=== PATIENT | male | born 1995 | race Caucasian/White ===

== ENCOUNTER 2018-05-15 09:26 | Emergency (ER) | payer OTHER, MEDICAID, SELFPAY ==
[2018-05-15 09:36] VITALS: BP 133/72; PULSE 67; RESP 20; TEMP 37; O2SAT 96; BMI 25.0
--- NOTE | 2018-05-15 09:37 | ED_ITS ---
HPI - Extremity Injury (Upper) General Chief Complaint: Extremity Injury, Upper Stated Complaint: RIGHT HAND PAIN FOR 5 HOURS Time Seen by Provider: 05/15/18 09:37 Source: patient Mode of arrival: ambulatory Limitations: no limitations History of Present Illness HPI narrative: 23-year-old [id number] male here for evaluation of right hand injury. Patient states that he punched a wall last evening and since then has had pain and swelling. No elbow pain. No wrist pain. Related Data Home Medications Medication Instructions Recorded Confirmed No Known Home Medications 05/15/18 05/15/18 Allergies Allergy/AdvReac Type Severity Reaction Status Date / Time No Known Drug Allergies Allergy Verified 05/15/18 09:38 Review of Systems Constitutional Denies chills, Denies fever(s), Denies lethargy and Denies weakness Musculoskeletal Comments: Right hand pain Integumentary/Breasts Comments: Small abrasion back right hand Neurologic Denies weakness Comments: None numbness and tingling right hand Exam Initial Vital Signs Initial Vital Signs: Vital Signs Temperature 98.6 F 05/15/18 09:36 Pulse Rate 67 05/15/18 09:36 Respiratory Rate 20 05/15/18 09:36 Blood Pressure 133/72 H 05/15/18 09:36 Pulse Oximetry 96 05/15/18 09:36 Cardio Pulses: radial pulses present on the right Skin Other: Small 1/2 cm linear abrasion on the back of the right hand over the MCP joint of the little finger. Neuro Other: Sensation intact to light touch right upper extremity Extrem General: capillary refill normal Other: Right elbow unremarkable, right shoulder unremarkable, right wrist unremarkable, right hand unremarkable except for swelling over the ulnar aspect on the dorsum of the right hand and tenderness to palpation along the metacarpal of the little finger. Patient able to bend at the MCP DIP and PIP joint of the right little finger. Procedures Orthopedic Splinting/Casting Injury #1: Side: right Upper Extremity Injury Location: hand Upper Extremity Immobilizer: ulnar gutter Additional Comments: Hematoma block performed with 6 cc of 1% lidocaine without epinephrine Course Orders Ordered: ED Orders 05/15/18 09:38 XR hand RT min 3V Stat 05/15/18 10:12 XR hand RT min 3V Stat Vital Signs - 8 hr 05/15/18 09:36 05/15/18 10:50 Temperature 98.6 F 97.6 F Pulse Rate 67 66 Respiratory Rate 20 18 Blood Pressure 133/72 H Blood Pressure [Left Arm] 139/71 H Pulse Oximetry 96 99 MDM - Extremity Injury (Upper) Imaging Data Hand x-ray: Radiologist's impression: PROCEDURE: XR HAND RT MIN 3V INDICATIONS: punched wall TECHNIQUE: 3 views of the hand(s) acquired. COMPARISON: None. FINDINGS: Bones: Fifth metacarpal fracture with palmar and radial angulation of the distal fragment. Soft tissues: No suspicious soft tissue calcifications. IMPRESSION: Fifth metacarpal fracture Dictated by: Jean Deluna M.D. on 05/15/2018 at 8:49 Post reduction x-ray: Attestation: I personally reviewed and interpreted this imaging study as follows: My impression: Improvement of the angulation 5th metacarpal fracture MDM Narrative Medical decision making narrative: Patient with boxer's fracture right hand. Placed in ulnar gutter splint. Secondary to the angulation and twisting of the distal aspect a consult was placed to Orthopedics who stated that if the fracture was not open that I could just be splinted and normal follow-up. Patient was given this instruction. He is given splint care instructions. He expressed understanding and agreement with plan Discharge Plan Departure Patient Disposition: Home, Self-Care Clinical Impression: Fx metacarpal neck-closed Instructions: How To Perform RICE (Rest, Ice, Compress, Elevate), How to Take Care of Your Splint, Boxer's Fracture Activity Restrictions/Additional Instructions: Keep the splint on and keep it clean and dry. Call the [facility] group at [phone] either today or on Friday for a follow-up next week. Return to the emergency department for any new or worsening symptoms Prescriptions: No Action No Known Home Medications RF: 0
--- NOTE | 2018-05-15 10:12 | DI.RAD.S_ITS ---
PROCEDURE: XR HAND RT MIN 3V INDICATIONS: Post reduction in splint TECHNIQUE: 3 views of the hand(s) acquired. COMPARISON: [facility], CR, XR HAND RT MIN 3V, 05/15/2018, 9:18. FINDINGS: Bones: There has been interval reduction of the previous distal fifth metacarpal fracture. While there is improved alignment, but remains posterior lateral angulation. Soft tissues: No suspicious soft tissue calcifications. IMPRESSION: Improved anatomic alignment with persistent angulation at the distal fifth metacarpal fracture. Dictated by: Anaid Jaime M.D. on 05/15/2018 at 10:48 Approved by: Anaid Jaime M.D. on 05/15/2018 at 10:51
[2018-05-15 10:50] VITALS: BP 139/71; PULSE 66; RESP 18; TEMP 36.4; O2SAT 99
== END 2018-05-15 11:55 | disposition home or self-care (01) ==
PROVIDERS: Emergency Provider Emergency Medicine
DX: S62.306A Unspecified fracture of fifth metacarpal bone, right hand, initial encounter for closed fracture (principal); W22.8XXA Striking against or struck by other objects, initial encounter
CPT/HCPCS: 29105; 73130; 99282; 99283

== ENCOUNTER 2018-06-04 08:09 | Day surgery (SDC) | payer OTHER, MEDICAID, SELFPAY ==
[2018-06-02 07:45] VITALS: BMI 25.2
[2018-06-04] VITALS (10 sets, daily range): BP systolic 104–140; BP diastolic 46–82; PULSE 66–96; RESP 12–20; TEMP 36.3–37.7; O2SAT 95–100; BMI 25.4
--- NOTE | 2018-06-04 08:59 | PM.PREOP ---
Pre-operative Note Interval Note Pre-op Check: History & Physical Reviewed by Physician and Exam Performed H&P completed within 30 days and has changed as indicated here:: no changes
[2018-06-04] MEDS: LACTATED RINGERS 1,000 ML 42 ML IV (09:11)
--- NOTE | 2018-06-04 09:11 | P.OP_ITS ---
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 He punched a wall on 05/14/2018 sustaining a displaced right 5th metacarpal neck fracture. He was seen in the ER where this was reduced and splinted. He was also seen a week later in the Orthopedic Clinic noted to have increased displacement and was closed reduced obtaining good alignment on office imaging. The patient was once again splinted in a safe position. On follow-up in the office patient's fracture angulation had increased to approximately 60-70?, the patient had prominence in his palm and mild pseudo clawing. Of note the patient had been very active, golfing and playing soccer in the splint. He is a very active individual and does a lot of gripping activities, and requests surgical fixation. The risks and benefits of conservative versus operative fixation were discussed with the patient. Given his severe angulation, pseudo clawing and demanding activities he has been indicated for surgical reduction and stabilization. We discussed using K-wires for temporary fixation versus screws and a plate or intramedullary fixation and the risks and benefits of these options. We discussed attempted closed reduction and percutaneous fixation to obtain reduction and minimize soft tissue injury and stiffness, however we discussed open reduction may be necessary given the fracture displacement and age and this would be stabilized with wires or plate and screws. The patient was counseled regarding the rationale for this and the risk surgery. The risks include stiffness, infection , bleeding, damage to nerves and blood vessels or tendons, and wound dehiscence , malunion, nonunion, persistence of pain, DVT, PE, inability to return to the desired level of function, hardware breakage or prominence, generalized dissatisfaction with the surgical procedure, need for additional procedures, cardiopulmonary complications and . The patient expressed understanding of all the risks and elected to proceed. The patient understands that recovery is variable and may require up to 1 year. The patient also understands that it is critical to elevate the operative extremity for the 1st 2 weeks after surgery to control swelling and pain, and to avoid lifting activities with the right hand during initial recovery. Patient was counseled that he will be in a postop splint and/or cast. We discussed that he may require formal physical therapy and that stiffness often occurs after this injury and surgical fixation. Patient expressed full understanding of these issues and would like to proceed with surgery. Informed consent was obtained and signed. The patient was additionally counseled on avoidance of all nicotine products to promote bone and wound healing. Surgeon: Archana Fisher Click Yes if Unassisted: Yes Anesthesia Type: General and Local Operative Notes Findings: The right hand was inspected. There is absence of the knuckle prominence. Hand was then examined under C-arm fluoroscopy. There was a displaced metacarpal fracture. On attempted closed reduction this was found to be stiff and irreducible. A decision was made to open in order to obtain reduction. Dorsal approach to the fifth metacarpal demonstrated a small amount of dorsal soft callus. And is severely angulated metacarpal neck fracture apex dorsal. There was additionally some dorsal comminution with a dorsal butterfly fragment. Closure Type: primary Specimen(s): none sent Implants & Drains: 5 hole 2.7 Plate from mini fragment set 2.0 screws Applied: other (splint) Estimated Blood Loss (mL): 5 Blood products transfused: none Tourniquet time (min): 70 Procedure in detail: In the preoperative holding area, the appropriate limb and site of surgery were marked. Patient's questions were answered and consent was confirmed. The patient was brought back to the operating room, placed on operating table and given anesthetic. Following successful levels of anesthesia , the patient was appropriately padded and positioned and secured to the operative table in the supine position with a hand table on the right side. A well-padded brachial tourniquet was placed and SCD was used on the lower extremities. Surgical extremity was then prepped and draped in the standard sterile fashion. A formal timeout procedure was completed confirming the patient, site and side of surgery and administration of preoperative antibiotics. In this case that was 2 g of Ancef. All were in agreement. Possible implants for the case including K wires and may be fragments that were available. The mini C-arm was used to perform a stress radiographic examination of the fifth metacarpal fracture. This was found to be severely angulated approximately 60-70? apex dorsal and was stiff and not reducible. The decision was made to perform an open reduction internal fixation. An Esmarch was used to exsanguinate the upper extremity and the tourniquet was raised to 250 mmHg. An incision was made dorsal ulnar to the fifth metacarpal over the location of the fracture and ulnar to the extensor tendons. This was carried sharply down through the skin. The extensor tendons were mobilized and retracted radially to expose the dorsal surface of the fifth metacarpal. The fracture was identified this was noted to be angulated palmarly with mild comminution dorsally including a dorsal butterfly fragment that was nondisplaced as part of the distal fragment a loose and mobile. Additionally there is a small amount of soft callus dorsally. The fracture was reopened using a blade and a [place]. Care was taken to minimized stripping. This was somewhat difficult due to the fractures age, but eventual mobilization was obtained in the distal fragment was reduced to the shaft and held with 045 K wires. Reduction was confirmed on fluoroscopy and due to the dorsal comminution it was felt that a dorsal plate and screw construct would provide more stability than K wires and allow potential early immobilization. A 5 hole plate from the mini fragment set was selected. This was fit over the fracture and bicortical fixation was achieved with 2 screws proximally and distally screw lengths were checked. Initially the distal screw was demonstrated to be too long for this was exchanged and again fixation was confirmed adequate on multiplane fluoroscopy. The MCP joint was checked unable to obtain a full range of motion without impingement. And tenodesis examination was performed confirming appropriate rotational alignment and cascade. The tourniquet was released hemostasis was achieved and the wound was copiously irrigated with sterile saline. The incision was closed in layers with 3-0 Vicryl 4-0 Monocryl and 4-0 nylon suture. An ulnar nerve block was completed with a 50-50 mix of 1% lidocaine plain and 0.5% bupivacaine. Xeroform and gauze dressing were placed. The upper extremity was placed into an ulnar gutter splint in the safe position. The patient was awoken from anesthesia and taken to the recovery room in good condition. All counts were correct. There were no immediate complications from this procedure. Complications: none Condition: stable Disposition: same day surgery Plan for aftercare: Patient will be discharged home from the PACU he will be nonweightbearing on his right upper extremity and will keep the splint clean dry and in place. He will follow-up in 7-14 days for splint removal and suture removal. And will start limited early range of motion as appropriate.
[2018-06-04] MEDS: CEFAZOLIN 2 GM/100 ML FROZ.PIGGY IV (11:04)
--- NOTE | 2018-06-04 11:23 | SUR.OPER ---
Supine on padded OR bed, head on pillow, left arm secured on padded arm boards at <90 degrees abduction, right arm draped free on sterile arm board, legs uncrossed, safety belt at thigh, tape over blanket over lower legs.
[2018-06-04] MEDS: BUPIVACAINE 0.5% (PF) 30 ML VIAL INJ (11:46)
[2018-06-04] MEDS: LIDOCAINE 1% 30 ML INJ INJ (11:46)
[2018-06-04] MEDS: METOCLOPRAMIDE 10 MG/2 ML INJ IV ×2 (13:43→14:55)
[2018-06-04] MEDS: fentaNYL 100 MCG/2 ML INJ 50 MCG IV ×2 (13:54→14:01)
--- NOTE | 2018-06-04 14:05 | SUR.PHASEI ---
Assumed care. Pt reported pain improving to 5/10. Drsg CDI, Fingers warm, cap refill wnl, + sensation to fingers.
[2018-06-04] MEDS: HYDROCODONE/ACET 5/325 TABLET 1 TAB PO (14:43)
== END 2018-06-04 15:30 | disposition home or self-care (01) ==
PROVIDERS: Visit Provider Orthopaedic Surgery Foot and Ankle Surgery
PROC: (CPT 26615; principal; 2018-06-04 11:15)
DX: S62.398A Other fracture of other metacarpal bone, initial encounter for closed fracture (principal); W22.09XA Striking against other stationary object, initial encounter
CPT/HCPCS: 26615; J0690; J2405; J2704; J2765; J3010

== ENCOUNTER 2018-07-29 12:25 | Emergency (ER) | payer OTHER, MEDICAID, SELFPAY ==
[2018-07-29 12:29] VITALS: BP 135/78; PULSE 67; RESP 14; TEMP 36.6; O2SAT 98
--- NOTE | 2018-07-29 12:44 | ED.EXTPRO ---
HPI - Extremity Problem <Magalie Armenta PA-C - Last Filed: 07/29/18 14:06> General Chief complaint: Extremity Problem,Nontraumatic Stated complaint: SURGERY 06/04,POST OP INFECTION? Time Seen by Provider: 07/29/18 12:36 Source: patient Mode of arrival: ambulatory Limitations: no limitations History of Present Illness HPI Narrative: This healthy 23-year-old male with a history of right 5th metacarpal fracture fixation comes in due to concern for surgical wound infection. He states that he had some delayed healing and problems just with the distal end of the wound over the metacarpal joint, but it did seem to eventually get better. He states that at his recent physical therapy visit, PT notice that it felt warmer, and he thinks he has noticed some increased redness and warmth for the last few days or so. He states that he has also had some intermittent green pus drain, last time was yesterday. He denies any rapid spread. He has not had any pus draining today. He denies any difficulty or pain with movement. No weakness or paresthesia. He has not had any fever and states he is feeling fine. He states that he has been cleaning this with peroxide, alcohol and using antibiotic ointment. Related Data Previous Rx's Medication Instructions Recorded cephalexin [Keflex] 500 mg PO Q6H 7 Days #28 cap 07/29/18 Allergies Allergy/AdvReac Type Severity Reaction Status Date / Time cat dander Allergy Verified 07/29/18 12:31 Review of Systems <Magalie Armenta PA-C - Last Filed: 07/29/18 14:06> Review of Systems All systems reviewed & are unremarkable except as noted in HPI and below PFSH <Magalie Armenta PA-C - Last Filed: 07/29/18 14:06> Comment: Occasional ETOH, no street drugs Exam <Magalie Armenta PA-C - Last Filed: 07/29/18 14:06> Narrative Exam Narrative: GENERAL APPEARANCE: Patient sitting comfortably, in no distress. LUNGS: Clear to auscultation bilaterally. HEART: Rate and rhythm regular without murmur, normal S1 and S2, no S3 or S4. DERMATOLOGIC: There is a well-healed right 5th metacarpal dorsum surgical scar. There is some induration and a visible pore over the MC joint. No fluctuance. No tenderness. Mild erythema surrounding that extends to the wrist on the dorsum, non circumferential. Minimally warm to touch, unable to exude any drainage MUSCULOSKELETAL: Right 5th finger full range of motion, strength intact against resistance NEUROVASCULAR: Right hand is warm and pink, brisk cap refill, SENSATION IS GROSSLY INTACT Initial Vital Signs Initial Vital Signs: Vital Signs Temperature 97.8 F 07/29/18 12:29 Pulse Rate 67 07/29/18 12:29 Respiratory Rate 14 07/29/18 12:29 Blood Pressure 135/78 07/29/18 12:29 Pulse Oximetry 98 07/29/18 12:29 <Anabel Urban DO - Last Filed: 07/30/18 08:25> Initial Vital Signs Initial Vital Signs: Vital Signs Temperature 97.8 F 07/29/18 12:29 Pulse Rate 67 07/29/18 12:29 Respiratory Rate 14 07/29/18 12:29 Blood Pressure 135/78 07/29/18 12:29 Pulse Oximetry 98 07/29/18 12:29 Course <Magalie Armenta PA-C - Last Filed: 07/29/18 14:06> Vital Signs - 8 hr 07/29/18 12:29 07/29/18 13:17 Temperature 97.8 F Pulse Rate 67 65 Respiratory Rate 14 12 Blood Pressure 135/78 125/66 Pulse Oximetry 98 99 <Anabel Urban DO - Last Filed: 07/30/18 08:25> Vital Signs - 8 hr 07/29/18 12:29 07/29/18 13:17 Temperature 97.8 F Pulse Rate 67 65 Respiratory Rate 14 12 Blood Pressure 135/78 125/66 Pulse Oximetry 98 99 Discharge Plan Departure Patient Disposition: Home Clinical Impression: Cellulitis of finger of right hand Discharge Date/Time: 07/29/18 13:17 Interventions: ED Discharge Assessment Last Done: 07/29/18 13:17 Instructions: DI for Cellulitis -- Adult Activity Restrictions/Additional Instructions: Please return as we talked about if any acutely worsening symptoms such as rapid increase in redness, drainage, pain or new fever. Otherwise, please follow-up with your surgeon or your PCP in a few days to assess her progress. You may want to use hot soaks to help with cleaning and drainage, then you can continue your antibiotic ointment. Start antibiotic as soon as you pick it up. Prescriptions: New cephalexin [Keflex] 500 mg capsule 500 mg PO Q6H 7 Days Qty: 28 RF: 0 Referrals: Rafal Durbin [Other] Archana Fisher MD [Physician] - <Anabel Urban DO - Last Filed: 07/30/18 08:25> Cosign ED Attending Galindoature Attestation: I was immediately available in the department for consultation. Documentation has been reviewed. I agree with assessment and plan.
[2018-07-29 13:17] VITALS: BP 125/66; PULSE 65; RESP 12; O2SAT 99
== END 2018-07-29 13:17 | disposition home or self-care (01) ==
LOC: ED 13:10
PROVIDERS: Emergency Provider Internal Medicine
DX: L03.011 Cellulitis of right finger (principal)
CPT/HCPCS: 99282

== ENCOUNTER 2020-12-03 09:56 | Emergency (ER) | payer OTHER, SELFPAY ==
--- NOTE | 2020-12-03 10:23 | DI.RAD.S_ITS ---
PROCEDURE: XR FINGER LT MIN 2V INDICATIONS: crush/open wound TECHNIQUE: AP hand, 2 views of the 1st finger(s) acquired. COMPARISON: None. FINDINGS: Bones: No fractures or dislocations. No suspicious bony lesions. Soft tissues: No suspicious soft tissue calcifications. No radiopaque foreign body. IMPRESSION: No acute osseous abnormality. Dictated by: Sanket Kwon M.D. on 12/03/2020 at 9:51 Approved by: Sanket Kwon M.D. on 12/03/2020 at 9:52
[2020-12-03 10:24] VITALS: BP 125/77; PULSE 82; RESP 16; TEMP 37; O2SAT 100; BMI 25.0
[2020-12-03] MEDS: KETOROLAC 60 MG/2 ML VIAL 30 MG IM (12:15)
[2020-12-03] MEDS: TET,DIPH,PERTUSS(ACELL),VAC/PF 0.5 ML SYRINGE IM (12:16)
--- NOTE | 2020-12-03 12:17 | ED_ITS ---
HPI - Extremity Injury (Upper) <LUKE Hernandez - Last Filed: 12/03/20 16:02> General Chief Complaint: Extremity Injury, Upper Stated Complaint: SMASHED LEFT THUMB Time Seen by Provider: 12/03/20 11:27 Source: patient Mode of arrival: Ambulatory Limitations: no limitations History of Present Illness HPI narrative: The patient is a 25-year-old male nonsmoker who presents with a chief complaint of an injury to his left thumb. He states he got caught on a gym bench when moving the gym bench. He states that the laceration is through the nail. He has not washed it out. He does not know when his last tetanus was. He states that pain is a 3/10. He has not taken anything for pain. He denies any previous injuries to that area. He states he is right-hand dominant. Related Data Allergies Allergy/AdvReac Type Severity Reaction Status Date / Time No Known Drug Allergies Allergy Verified 12/03/20 12:51 Review of Systems <LUKE Hernandez - Last Filed: 12/03/20 16:02> Review of Systems Narrative: GENERAL: Denies chills, fatigue, malaise, fever, sweats. HEENT: Denies sinus pain, ear pain, sore throat, difficulty swallowing, dizziness. RESPIRATORY: Denies dyspnea, cough, wheezing, hemoptysis, sputum. CARDIOVASCULAR: Denies chest pain, palpitations, orthopnea, edema, GASTROINTESTINAL: Denies nausea, vomiting, abdominal pain, diarrhea, constipation, melena. : Denies dysuria, frequency, incontinence, hematuria, urinary retention. MUSCULOSKELETAL: See HPI SKIN: See HPI NEUROLOGIC: Denies weakness, headache, numbness, change in speech, confusion, seizures, incoordination. PSYCHIATRIC: No concerning psychosocial issues. 12 point review of systems is negative except for those stated above Patient History <LUKE Hernandez - Last Filed: 12/03/20 16:02> Social History Smoking Status: Never smoker Smoking Status: Never smoker alcohol intake frequency: 0-2 drinks per day Exam <LUKE Hernandez Last Filed: 12/03/20 16:02> Narrative Exam Narrative: GENERAL: This is a well-nourished, well-developed patient, in no acute distress HEAD: Atraumatic. Normocephalic. No temporal or scalp tenderness. EYES: Pupils equal round and reactive. Extraocular motions intact. No scleral icterus. No injection or drainage. ENT: Nose without bleeding, purulent drainage or septal hematoma. Wearing a mask Airway patent. NECK: Trachea midline. No JVD or lymphadenopathy. Supple, nontender, no meningeal signs. CARDIOVASCULAR: Regular rate and rhythm RESPIRATORY: No cough. No increased respiratory effort. No accessory muscle use. EXTREMITIES: Flex and extend left thumb against resistance. Capillary refill less than 2 seconds left thumb. Positive left radial pulse. BACK: Nontender without deformity or crepitance. No flank tenderness. NEURO: AOx3. SKIN: 1 cm linear laceration noted throughout left thumb nail. Well- approximated. Initial Vital Signs Initial Vital Signs: Vital Signs Temperature 98.6 F 12/03/20 10:24 Pulse Rate 82 12/03/20 10:24 Respiratory Rate 16 12/03/20 10:24 Blood Pressure 125/77 12/03/20 10:24 Pulse Oximetry 100 12/03/20 10:24 <Roseanna Lakhani DO - Last Filed: 12/03/20 19:41> Initial Vital Signs Initial Vital Signs: Vital Signs Temperature 98.6 F 12/03/20 10:24 Pulse Rate 82 12/03/20 10:24 Respiratory Rate 16 12/03/20 10:24 Blood Pressure 125/77 12/03/20 10:24 Pulse Oximetry 100 12/03/20 10:24 Scores <LUKE Hernandez - Last Filed: 12/03/20 16:02> GCS Dyan coma scale eye opening: Spontaneous Dyan coma scale verbal response: Orientated [place] coma scale motor response: Obey commands [facility] [place] coma scale total score: 15 Course <LUKE Hernandez - Last Filed: 12/03/20 16:02> Orders Ordered: Discontinued Medications Bacitracin (Bacitracin Oint 0.9 Gm Pckt) 1 applic TOP NOW ONE Stop: 12/03/20 12:56 Last Admin: 12/03/20 13:04 Dose: 1 applic Documented by: CHARLA Diphtheria/Tetanus/Acell Pertussis (Tet,Diph,Pertuss(Acell),Vac/Pf 0.5 Ml Sy ringe) 0.5 ml IM .ONCE ONE Stop: 12/03/20 11:48 Last Admin: 12/03/20 12:16 Dose: 0.5 ml Documented by: CHARLA Ketorolac Tromethamine (Ketorolac 60 Mg/2 Ml Vial) 30 mg IM NOW ONE Stop: 12/03/20 11:48 Last Admin: 12/03/20 12:15 Dose: 30 mg Documented by: CHARLA Vital Signs Vital signs: Vital Signs - 8 hr 12/03/20 13:09 Temperature 98.0 F Pulse Rate 66 Respiratory Rate 14 Blood Pressure 117/68 Pulse Oximetry 100 <Roseanna Lakhani DO - Last Filed: 12/03/20 19:41> Orders Ordered: Discontinued Medications Bacitracin (Bacitracin Oint 0.9 Gm Pckt) 1 applic TOP NOW ONE Stop: 12/03/20 12:56 Last Admin: 12/03/20 13:04 Dose: 1 applic Documented by: CHARLA Diphtheria/Tetanus/Acell Pertussis (Tet,Diph,Pertuss(Acell),Vac/Pf 0.5 Ml Syringe) 0.5 ml IM .ONCE ONE Stop: 12/03/20 11:48 Last Admin: 12/03/20 12:16 Dose: 0.5 ml Documented by: CHARLA Ketorolac Tromethamine (Ketorolac 60 Mg/2 Ml Vial) 30 mg IM NOW ONE Stop: 12/03/20 11:48 Last Admin: 12/03/20 12:15 Dose: 30 mg Documented by: CHARLA Vital Signs Vital signs: Vital Signs - 8 hr 12/03/20 13:09 Temperature 98.0 F Pulse Rate 66 Respiratory Rate 14 Blood Pressure 117/68 Pulse Oximetry 100 MDM - Extremity Injury (Upper) <LUKE Hernandez - Last Filed: 12/03/20 16:02> Imaging Data Extremity x-ray #1: Radiologist's Impression: [address] [place] [id number] ReportSigned Patient: Gagan العراقي#: [id number]: 1995Acct:[id number]/Sex: 25 / MDate of Service: 12/03/20Loc: EDAccession Number: [id number] Procedure: XR finger LT min 2V Ordering Provider: Mank,Roseanna C D.O. PROCEDURE: XR FINGER LT MIN 2V INDICATIONS: crush/open wound TECHNIQUE: AP hand, 2 views of the 1st finger(s) acquired. COMPARISON: None. FINDINGS: Bones: No fractures or dislocations. No suspicious bony lesions. Soft tissues: No suspicious soft tissue calcifications. No radiopaque foreign body. IMPRESSION: No acute osseous abnormality. Dictated by: Sanket Kwon M.D. on 12/03/2020 at 9:51 Approved by: Sanket Kwon M.D. on 12/03/2020 at 9:52 [facility] Narrative Medical decision making narrative: The patient is a 25-year-old male who presents with a chief complaint of laceration to his left thumb. X-ray is no acute findings. Wound was copiously cleansed with Hibiclens. Tetanus was updated as the patient does not know when his tetanus was and that is the main reason he came to the emergency department today. Discussed the possibility of suturing through the nail, discussed possibility of nail removal, however patient and I elected to hold off on these things for now as the nail is acting as a splint and protective. Encourage keeping it clean and dry discussed not submerging in dirty water, encouraged follow-up with primary care provider in the next few days. Patient states understanding of monitoring for signs and symptoms of infection such as reduced range of motion, increasing redness etcetera. Patient has no questions or concerns upon discharge and states unders tanding return precautions as well as follow-up care. He has been nontoxic and hemodynamically stable, in no acute distress throughout his stay in the emergency department. Discharge Plan Departure Patient Disposition: Home Clinical Impression: Laceration Instructions: How to Care for a Laceration After Repair, Minor Wounds (Alternative Therapy), DI for Minor Laceration Activity Restrictions/Additional Instructions: Thank you for trusting us with your care today. Today we washed out your wound and updated your tetanus. Please keep your wound clean and dry. Do not submerge into dirty water as this can increase your chance of infection Please monitor for signs of worsening infection including extending redness purulent drainage etcetera and follow up if these occur Please come back to the emergency department for any acute concerns I have given you contact information to the [facility] forest resources professor. Please follow-up with them as they can help you find a primary care provider. Referrals: [facility] [Outside] <Roseanna Lakhani, DO - Last Filed: 12/03/20 19:41> Cosign ED Attending Cosignature Attestation: I was immediately available in the department for consultation. Documentation has been reviewed.
[2020-12-03] MEDS: BACITRACIN OINT 0.9 GM PCKT 1 APPLIC TOP (13:04)
[2020-12-03 13:09] VITALS: BP 117/68; PULSE 66; RESP 14; TEMP 36.7; O2SAT 100
== END 2020-12-03 13:08 | disposition home or self-care (01) ==
PROVIDERS: Emergency Provider Nurse Practitioner Family
DX: S61.112A Laceration without foreign body of left thumb with damage to nail, initial encounter (principal); W23.0XXA Caught, crushed, jammed, or pinched between moving objects, initial encounter; Z23 Encounter for immunization
CPT/HCPCS: 73140; 90471; 96372; 99281; 99283; 90715; J1885